=== PATIENT | female | born 1985 | race African-American/Black ===

== ENCOUNTER 2019-02-24 22:07 | Emergency (ER) | payer MEDICAID ==
[~2019-02-24] VITALS: Ht 167.6 cm; Wt 86.2 kg
[~2019-02-24 22:07] MED LIST: CALC500T2 PO; FERR325E14 PO; IBUP-2218 PO; PREN1SGL25 PO
[2019-02-24 22:41] VITALS: BP 107/81
[2019-02-25] MEDS ORDERED: KETOROLAC 60 MG/2 ML VIAL IM ONE (00:25)
[2019-02-25] MEDS ORDERED: BACITRACIN OINT 500 UNITS/GM PKT TP ONE (01:40)
[2019-02-25 02:05] VITALS: BP 121/67
== END 2019-02-25 02:05 | disposition home or self-care (01) ==
LOC: MED 22:07
DX: S61.213A Laceration without foreign body of left middle finger without damage to nail, initial encounter (principal); Z79.1 Long term (current) use of non-steroidal anti-inflammatories (NSAID); Z79.899 Other long term (current) drug therapy; V89.2XXA Person injured in unspecified motor-vehicle accident, traffic, initial encounter; Y93.89 Activity, other specified; Y92.410 Unspecified street and highway as the place of occurrence of the external cause; Y99.8 Other external cause status
CPT/HCPCS: 73120; 90471; 90715; 96372; 99283; J1885; Q0092

== ENCOUNTER 2021-05-03 02:17 | Emergency (ER) | payer MEDICAID ==
[~2021-05-03] VITALS: Ht 167.6 cm; Wt 108.9 kg
[2021-05-03 02:21] VITALS: BP 134/74
--- NOTE | 2021-05-03 02:29 | NUR ---
Ambulatory to bed 12 and change to a gown.
--- NOTE | 2021-05-03 02:42 | NUR ---
Pelvic exam performed by DR. CORREA with RODNEY BUTCHER at bedside for entire examination. Patient tolerated procedure WELL. Patient assisted to position of comfort after examination.
--- NOTE | 2021-05-03 03:37 | NUR ---
US at bedside.
--- NOTE | 2021-05-03 05:26 | NUR ---
PATIENT LEFT ER AT THIS TIME
--- NOTE | 2021-05-03 05:38 | NUR ---
PATIENT DISCHARGED WITHOUT TAKIGN PAPERWORK. LEFT BEFORE ER MD COULD PROVIDE PAPERS
== END 2021-05-03 05:38 | disposition left against medical advice (07) ==
LOC: MED 02:17
DX: T19.2XXA Foreign body in vulva and vagina, initial encounter (principal); X58.XXXA Exposure to other specified factors, initial encounter; Y93.89 Activity, other specified; Y92.89 Other specified places as the place of occurrence of the external cause; Y99.8 Other external cause status
CPT/HCPCS: 76830; 99284; Q0092